=== PATIENT | female | born 1985 | race Caucasian/White ===

== ENCOUNTER → 2016-11-01 | Outpatient (CLI) | payer BC ==
[~2016-11-01] MED LIST: AUGMENTIN
[2016-11-01 11:10] LABS: HEMATOCRIT 43.8 % (35.0-45.0); HEMOGLOBIN 14.6 gm/dL (12.0-16.0); MEAN CELL VOLUME 92.8 FL (83-96); MEAN CORPUSCULAR HEMOGLOBIN 30.9 PG (28-34); MEAN CORPUSCULAR HGB CONC 33.3 g/dL (30-36); MEAN PLATELET VOLUME 8.4 FL (6.5-11.5); RED BLOOD COUNT 4.72 X10e (3.90-5.30); RED CELL DISTRIBUTION WIDTH 13.2 % (11.0-15.5); WHITE BLOOD COUNT 7.9 X10e3 (4.0-10.5)
== END | disposition home or self-care (01) ==
LOC: CAMB 08:30
PROVIDERS: Surgery
DX: Z01.812 Encounter for preprocedural laboratory examination (principal); L72.3 Sebaceous cyst
CPT/HCPCS: 36415; 85027

== ENCOUNTER → 2016-11-04 | Day surgery (SDC) | payer BC ==
--- NOTE | ~2016-11-04 | OR ---
Unit #: [id number] #: [id number] Patient: MAYO MAGALLANES [id number] [address] [place], [place] [address] [id number] MR#: [id number] NAME: MAYO MAGALLANES ROOM: Date of Procedure: 11/04/2016 Admission Date: 11/04/2016 Surgeon: Chidi Rust III, M.D. : 1985 Attending Physician: Chidi Rust III, M.D. Primary Care Physician: Generic Doctor Not In System OPERATIVE REPORT PREOPERATIVE DIAGNOSIS Recurrent infection of right groin cyst. POSTOPERATIVE DIAGNOSIS Recurrent infection of right groin cyst. PROCEDURE PERFORMED Excision of right groin cyst. There were two separate cysts that were removed as well as a communicating channel. The one incision that was just adjacent to the right labia, measured 3 cm x 1 cm and the one inferior and lateral to the right groin crease was approximately 5 cm long and 1.5 cm in width. ANESTHESIA General. SPECIMEN Both cysts sent to Pathology. COMPLICATIONS None apparent. INDICATIONS FOR PROCEDURE This is a 31-year-old lady, who has had chronically reoccurring infected cyst in the right groin area. It will occasionally heal with antibiotics, but then recur. She is here today for definitive resection. We talked about risks of infection and recurrence and she understands those and wishes to proceed. DESCRIPTION OF PROCEDURE After consent was obtained, the patient was brought to the operating room and placed in supine position. General anesthetic was administered and then she was placed in the frog-leg position. We prepped the area in standard surgical fashion. I spent some time trying to contemplate what the best approach would be because this crossed over the groin crease. There was an obvious small lesion in the right labial region and there was a more prominent cyst just lateral and inferior to the groin crease. These two areas did seem to communicate because that issue rolled a finger from medial to lateral. There would be a small expression of some purulent drainage. I began by making an elliptical incision around the section of the cyst, that was inferior to the crease. This was approximately 5 cm long and 1.5 cm wide. I excised the cyst; however, I Unit #: [id number] #: [id number] Patient: MAYO MAGALLANES saw small communicating channel that communicated to the more proximal area near the right labia. I then turned my attention to excising that, which again was done by making a 3 cm x 1 cm incision. I found the small channel connecting the two areas. I placed an Allis clamp along the neck of this and this was dissected out from the surrounding tissue. I then had good hemostasis. I injected the area with 0.25% plain Marcaine. I closed the smaller of the two wounds with a running 4-0 Vicryl subcuticular suture and the larger wound was closed with a deeper 3-0 Vicryl suture and then a running 4-0 Vicryl subcuticular suture. Neosporin was then applied. The patient tolerated the procedure without any problems and returned to the recovery room in stable condition. Dictated by... Chidi Rust III, M.D. VCL/janey TD: 11/06/2016 09:38 JOB #: [id number] CC: Garry Quintero M.D. OPERATIVE REPORT Page 1 of 1 X Chidi Rust III, MD PROCEDURE OPERATIVE NOTE
== END | disposition home or self-care (01) ==
LOC: CSUR 05:22
DX: L72.0 Epidermal cyst (principal); L02.214 Cutaneous abscess of groin; L92.3 Foreign body granuloma of the skin and subcutaneous tissue; F17.210 Nicotine dependence, cigarettes, uncomplicated; Z87.440 Personal history of urinary (tract) infections; Z98.890 Other specified postprocedural states
CPT/HCPCS: 88304; J1885; J2250; J2405; J3010; J3370